=== PATIENT | male | born 1930 | race Asian ===

== ENCOUNTER 2016-06-28 20:51 | Inpatient (IN) | payer MEDICARE, OTHER ==
[~2016-06-28] VITALS: Ht 172.7 cm; Wt 72.0 kg
[~2016-06-28 20:51] MED LIST: ALLO100T PO; ASA3 PO; ASPI-556 PO; CARV12 PO; CHLO120L TP; DSS100 PO; FURO20 PO; HEP5KI SQ; HYDR-3965 PO; MUPI15C TP; PANT40TA25 PO; VANC750F2 IVPB
[2016-06-28] MEDS ORDERED: ACETAMINOPHEN 650 MG RECTAL SUPPOSITORY PR ONE (21:30)
[2016-06-28] MEDS ORDERED: AMLO-512 PO (21:39)
[2016-06-28] MEDS ORDERED: GABA-531 PO (21:39)
[2016-06-28 22:17] LABS: BASOPHILS % (AUTO) 0.1 % (0.0-2.0); EOSINOPHILS % (AUTO) 0.1 % (1.0-6.0); HEMATOCRIT 52.8 % (41-53); HEMOGLOBIN 15.3 g/dL (13.5-17.5); LYMPHOCYTES # (AUTO) 1.3 K/uL (1.0-4.8); MEAN CORPUSCULAR HEMOGLOBIN 25.8 pg (26.0-34.0); MEAN CORPUSCULAR VOLUME 89 fL (80-100); MONOCYTES # (AUTO) 0.6 K/uL (0.1-1.0); MONOCYTES % (AUTO) 3.3 % (2.0-9.0); NEUTROPHILS # (AUTO) 16.1 K/uL (1.8-7.7); PLATELET COUNT (AUTO) 319 K/uL (150-450); RED BLOOD CELL COUNT(AUTO) 5.96 MIL/uL (4.50-5.90); RED CELL DISTRIBUTION WIDTH 17.8 % (11.5-14.5)
[2016-06-28 22:25] LABS: NEUTROPHILS % (AUTO) 89.5 % (40.0-70.0)
[2016-06-28 22:27] LABS: INR 1.2 (0.9-1.1); PROTHROMBIN TIME 12.3 SEC (9.4-11.6)
[2016-06-28 22:27] LABS: APPEARANCE,URINE TURBID (CLEAR); GLUCOSE, URINE (UA) NEGATIVE (NEGATIVE); KETONES,URINE NEGATIVE (NEGATIVE); LEUKOCYTE ESTERASE ,URINE LARGE (NEGATIVE); OCCULT BLOOD,URINE LARGE (NEGATIVE); PH,URINE 5.5 (5.0-8.0); PROTEIN,URINE SEE CONFIRM (NEGATIVE)
[2016-06-28 22:28] LABS: ADD UA MICROSCOPIC YES
[2016-06-28 22:29] LABS: SULFOSALICYLIC ACID,URINE 2+ (Negative)
[2016-06-28 22:36] LABS: RBC MORPHOLOGY COMMENT ABNORMAL RBC MORPH
[2016-06-28 22:37] LABS: WBC,URINE Full Field /HPF (0-5)
[2016-06-28 22:38] LABS: SQUAMOUS EPITHELIAL CELL,UR Few /LPF (None Seen)
[2016-06-28 22:57] LABS: ALANINE AMINOTRANSFERASE 19 U/L (12-78); ALBUMIN 1.7 g/dL (3.4-5.0); ANION GAP 19 mmol/L (8-16); ASPARTATE AMINOTRANSFERASE 45 U/L (15-37); BILIRUBIN,TOTAL 0.6 mg/dL (0.1-1.0); CALCIUM, TOTAL 8.9 mg/dL (8.8-10.5); CARBON DIOXIDE 19 mmol/L (22-29); CHLORIDE 110 mmol/L (98-107); CREATINE KINASE MB 1.6 ng/mL (0-5); CREATINE KINASE, TOTAL 767 U/L (39-308); CREATININE 6.27 mg/dL (0.60-1.30); GLOMERULAR FILTR. RATE CALC 9 mL/min (>60); POTASSIUM 5.4 mmol/L (3.5-5.1); SODIUM SERUM 148 mmol/L (136-145); TOTAL PROTEIN, SERUM 8.1 g/dL (6.4-8.2)
[2016-06-28 22:59] LABS: B-TYPE NATRIURETIC PEPTIDE 133 pg/mL (0-100)
[2016-06-28] MEDS ORDERED: SODIUM CHLORIDE 0.9% 1,000 ML IV ONE (23:00)
[2016-06-28] MEDS ORDERED: CefTRIAXone 1 GM/DEXTROSE 50 ML IV ONE (23:00)
[2016-06-28 23:02] LABS: UREA NITROGEN, BLOOD 149 mg/dL (7-18)
[2016-06-28] MEDS ORDERED: ONDANSETRON HCL 4 MG/2 ML VIAL IVP PRN (23:30)
[2016-06-28] MEDS ORDERED: 0.9% SODIUM CHLORIDE 10 ML SYRINGE IVP PRN (23:30)
[2016-06-28] MEDS ORDERED: ACETAMINOPHEN 325 MG TABLET PO PRN (23:30)
[2016-06-28 23:35] LABS: LACTIC ACID 2.8 mmol/L (0.4-2.0)
[2016-06-29] VITALS (7 sets, daily range): BP systolic 100–144; BP diastolic 50–80
[2016-06-29 00:09] LABS: REFLEX LACTIC ACID? YES YES
[2016-06-29 00:15] LABS: INFLUENZA TYPE B NEGATIVE FOR TYPE B (NEGATIVE)
[2016-06-29] MEDS ORDERED: OxyCODONE HCL/ACETAMINOPHEN 5-325 MG TABLET PO PRN (02:30)
[2016-06-29] MEDS ORDERED: SODIUM CHLORIDE 0.9% 1,000 ML IV SCH (02:30)
[2016-06-29] MEDS: DOCUSATE SODIUM 100 MG CAPSULE PO SCH ×3 (02:30→21:06)
[2016-06-29] MEDS ORDERED: ONDANSETRON HCL 4 MG/2 ML VIAL IVP PRN (02:30)
[2016-06-29] MEDS ORDERED: 0.9% SODIUM CHLORIDE 10 ML SYRINGE IVP PRN (02:30)
[2016-06-29] MEDS ORDERED: MAGNESIUM HYDROXIDE SUSPENSION 30 ML UDCUP PO PRN (02:30)
[2016-06-29] MEDS ORDERED: DEXTROSE 50%-WATER 25 GM/50 ML SYRINGE IVP PRN (02:30)
[2016-06-29] MEDS: INSULIN ASPART 100 UNITS/ML SQ PRN ×4 (05:46→21:09)
[2016-06-29 06:32] LABS: GLUCOSE,POINT OF CARE 336 MG/DL (70-110)
[2016-06-29 07:51] LABS: ORIG DRAW (USER) MSIMS
[2016-06-29] MEDS: ASPIRIN 81 MG EC TABLET PO SCH (09:10)
[2016-06-29] MEDS: PANTOPRAZOLE SODIUM 40 MG/VIAL IVP SCH (09:10)
[2016-06-29] MEDS: SODIUM CHLORIDE 0.45% 1,000 ML IV SCH (12:09)
[2016-06-29] MEDS: ALBUMIN HUMAN 25%-25GM/100ML 100 ML IV SCH ×2 (13:32→18:26)
[2016-06-29] MEDS: CefTRIAXone 1 GM/DEXTROSE 50 ML IV SCH (22:00)
[2016-06-30] MEDS: ALBUMIN HUMAN 25%-25GM/100ML 100 ML IV SCH ×5 (00:05→23:43)
[2016-06-30] MEDS: SODIUM CHLORIDE 0.45% 1,000 ML IV SCH ×2 (00:38→16:07)
[2016-06-30 04:17] VITALS: BP 121/71
[2016-06-30] MEDS: INSULIN ASPART 100 UNITS/ML SQ PRN ×3 (05:58→20:27)
[2016-06-30 06:05] LABS: LACTIC ACID 1.3 mmol/L (0.4-2.0)
[2016-06-30 06:27] LABS: CALCIUM, TOTAL 8.5 mg/dL (8.8-10.5); CREATININE 6.12 mg/dL (0.60-1.30); MAGNESIUM 3.1 mg/dL (1.80-2.40); PHOSPHORUS 7.1 mg/dL (2.5-4.9); POTASSIUM 4.5 mmol/L (3.5-5.1)
[2016-06-30 06:40] LABS: EOSINOPHILS % (AUTO) 0.6 % (1.0-6.0); HEMATOCRIT 36.8 % (41-53); HEMOGLOBIN 11.5 g/dL (13.5-17.5); LYMPHOCYTES % (AUTO) 6.1 % (22.0-44.0); MEAN CORPUSCULAR HEMOGLOBIN 28.5 pg (26.0-34.0); MEAN CORPUSCULAR HGB CONC 31.2 G/dL (31.0-37.0); MEAN CORPUSCULAR VOLUME 91 fL (80-100); MONOCYTES # (AUTO) 0.5 K/uL (0.1-1.0); MONOCYTES % (AUTO) 3.1 % (2.0-9.0); NEUTROPHILS # (AUTO) 15.6 K/uL (1.8-7.7); PLATELET COUNT (AUTO) 181 K/uL (150-450); RED BLOOD CELL COUNT(AUTO) 4.03 MIL/uL (4.50-5.90); RED CELL DISTRIBUTION WIDTH 17.5 % (11.5-14.5); WHITE BLOOD COUNT (AUTO) 17.3 K/uL (4.5-11.0)
[2016-06-30 07:30] VITALS: BP 124/70
[2016-06-30 08:07] LABS: NEUTROPHILS % (AUTO) 90.2 % (40.0-70.0)
[2016-06-30] MEDS: PANTOPRAZOLE SODIUM 40 MG/VIAL IVP SCH (08:30)
[2016-06-30] MEDS: DOCUSATE SODIUM 100 MG CAPSULE PO SCH ×2 (08:42→20:30)
[2016-06-30] MEDS: ASPIRIN 81 MG EC TABLET PO SCH (08:42)
[2016-06-30 10:47] LABS: ABG A-A DIFF O2 57.3 mmHg (10-20.0); ABG BASE EXCESS -10.5 mmol/L (-2.0-3.0); ABG HCO3 17.3 mmol/L (22.0-26.0); ABG OXYHEMOGLOBIN 90.9 % (94.0-100.0); ABG PCO2 25 mmHg (35-45); ABG PH 7.389 (7.35-7.450); TEMPERATURE, FAHRENHEIT, BG 97.8 FAHREN (96.0-98.6)
[2016-06-30 10:48] LABS: ALLEN TEST, BLOOD GAS Positive
[2016-06-30 10:56] VITALS: BP 174/90
[2016-06-30 12:07] LABS: GLUCOSE,POINT OF CARE 176 MG/DL (70-110)
[2016-06-30] MEDS ORDERED: *CLINICAL-PERIPHERAL PARENTERAL NUTRITION DOSING CLINICAL ONE (14:30)
[2016-06-30 15:18] VITALS: BP 160/75
[2016-06-30] MEDS: [UNRECOGNIZED DRUG - OTHER] IV SCH (17:12)
[2016-06-30] MEDS: AMINO ACIDS IV SCH (17:12)
[2016-06-30] MEDS: PPN IV SCH (17:12)
[2016-06-30 20:18] VITALS: BP 144/79
[2016-06-30] MEDS: ACETAMINOPHEN 325 MG TABLET PO PRN (20:20)
[2016-06-30 20:31] LABS: GLUCOSE COMMENT 1 Received Meds; GLUCOSE,POINT OF CARE 181 MG/DL (70-110)
[2016-06-30] MEDS: CefTRIAXone 1 GM/DEXTROSE 50 ML IV SCH (22:41)
[2016-07-01] VITALS (7 sets, daily range): BP systolic 91–178; BP diastolic 48–88
[2016-07-01] MEDS: INSULIN ASPART 100 UNITS/ML SQ PRN ×7 (00:52→23:39)
[2016-07-01 01:46] LABS: GLUCOSE COMMENT 1 Received Meds; GLUCOSE,POINT OF CARE 219 MG/DL (70-110)
[2016-07-01] MEDS: ALBUMIN HUMAN 25%-25GM/100ML 100 ML IV SCH ×4 (05:02→23:37)
[2016-07-01] MEDS: SODIUM CHLORIDE 0.45% 1,000 ML IV SCH ×2 (05:06→18:29)
[2016-07-01 06:26] LABS: GLUCOSE COMMENT 1 Received Meds; GLUCOSE,POINT OF CARE 212 MG/DL (70-110)
[2016-07-01] MEDS: ASPIRIN 81 MG EC TABLET PO SCH (09:29)
[2016-07-01] MEDS: PANTOPRAZOLE SODIUM 40 MG/VIAL IVP SCH (09:29)
[2016-07-01] MEDS: DOCUSATE SODIUM 100 MG CAPSULE PO SCH ×2 (09:29→20:36)
[2016-07-01 09:33] LABS: CALCIUM, TOTAL 8.5 mg/dL (8.8-10.5); CREATININE 5.74 mg/dL (0.60-1.30); MAGNESIUM 2.9 mg/dL (1.80-2.40); PHOSPHORUS 4.7 mg/dL (2.5-4.9); POTASSIUM 4.3 mmol/L (3.5-5.1)
[2016-07-01] MEDS: ACETAMINOPHEN 325 MG TABLET PO PRN (13:07)
[2016-07-01] MEDS: [UNRECOGNIZED DRUG - OTHER] IV SCH (16:18)
[2016-07-01] MEDS: PPN IV SCH (16:18)
[2016-07-01] MEDS: AMINO ACIDS IV SCH (16:18)
[2016-07-01 19:16] LABS: GLUCOSE,POINT OF CARE 193 MG/DL (70-110)
[2016-07-01 19:16] LABS: GLUCOSE,POINT OF CARE 181 MG/DL (70-110)
[2016-07-01] MEDS: CefTRIAXone 1 GM/DEXTROSE 50 ML IV SCH (22:38)
[2016-07-02] VITALS (7 sets, daily range): BP systolic 100–132; BP diastolic 52–68
[2016-07-02] MEDS: OxyCODONE HCL/ACETAMINOPHEN 5-325 MG TABLET PO PRN (01:05)
[2016-07-02 01:46] LABS: GLUCOSE COMMENT 1 Received Meds; GLUCOSE,POINT OF CARE 218 MG/DL (70-110)
[2016-07-02 01:46] LABS: GLUCOSE COMMENT 1 Received Meds; GLUCOSE,POINT OF CARE 204 MG/DL (70-110)
[2016-07-02] MEDS: INSULIN ASPART 100 UNITS/ML SQ PRN ×4 (03:59→21:15)
[2016-07-02] MEDS: ALBUMIN HUMAN 25%-25GM/100ML 100 ML IV SCH ×4 (05:39→23:59)
[2016-07-02] MEDS: ASPIRIN 81 MG EC TABLET PO SCH (09:07)
[2016-07-02] MEDS: DOCUSATE SODIUM 100 MG CAPSULE PO SCH ×2 (09:07→21:09)
[2016-07-02] MEDS: PANTOPRAZOLE SODIUM 40 MG/VIAL IVP SCH (09:08)
[2016-07-02 11:11] LABS: CALCIUM, TOTAL 8.5 mg/dL (8.8-10.5); CREATININE 6.51 mg/dL (0.60-1.30); MAGNESIUM 2.8 mg/dL (1.80-2.40); PHOSPHORUS 5.5 mg/dL (2.5-4.9); POTASSIUM 4.2 mmol/L (3.5-5.1)
[2016-07-02] MEDS ORDERED: FURO40 PO (11:40)
[2016-07-02] MEDS ORDERED: HALOPERIDOL 1 MG TABLET GT PRN (11:45)
[2016-07-02 18:36] LABS: GLUCOSE COMMENT 1 Received Meds; GLUCOSE,POINT OF CARE 208 MG/DL (70-110)
[2016-07-02 21:05] LABS: GLUCOSE COMMENT 1 Received Meds; GLUCOSE,POINT OF CARE 152 MG/DL (70-110)
[2016-07-02 21:06] LABS: GLUCOSE COMMENT 1 Received Meds; GLUCOSE,POINT OF CARE 171 MG/DL (70-110)
[2016-07-02 23:20] LABS: GLUCOSE,POINT OF CARE 202 MG/DL (70-110)
[2016-07-02] MEDS: CefTRIAXone 1 GM/DEXTROSE 50 ML IV SCH (23:59)
[2016-07-03] MEDS: OxyCODONE HCL/ACETAMINOPHEN 5-325 MG TABLET PO PRN (01:51)
[2016-07-03 04:34] VITALS: BP 97/45
[2016-07-03] MEDS: ALBUMIN HUMAN 25%-25GM/100ML 100 ML IV SCH ×4 (06:01→22:52)
[2016-07-03] MEDS: INSULIN ASPART 100 UNITS/ML SQ PRN ×4 (06:11→20:39)
[2016-07-03 07:29] LABS: CALCIUM, TOTAL 8.5 mg/dL (8.8-10.5); CREATININE 7.35 mg/dL (0.60-1.30); MAGNESIUM 2.9 mg/dL (1.80-2.40); POTASSIUM 4.7 mmol/L (3.5-5.1)
[2016-07-03 07:30] LABS: GLUCOSE,POINT OF CARE 327 MG/DL (70-110)
[2016-07-03 08:04] VITALS: BP 123/61
[2016-07-03 08:37] LABS: GLUCOSE COMMENT 1 Received Meds; GLUCOSE,POINT OF CARE 323 MG/DL (70-110)
[2016-07-03 08:37] LABS: GLUCOSE COMMENT 1 Received Meds; GLUCOSE,POINT OF CARE 190 MG/DL (70-110)
[2016-07-03 08:37] LABS: GLUCOSE COMMENT 1 Received Meds; GLUCOSE,POINT OF CARE 176 MG/DL (70-110)
[2016-07-03 08:37] LABS: GLUCOSE,POINT OF CARE 175 MG/DL (70-110)
[2016-07-03 08:37] LABS: GLUCOSE COMMENT 1 Received Meds; GLUCOSE,POINT OF CARE 239 MG/DL (70-110)
[2016-07-03 08:37] LABS: GLUCOSE COMMENT 1 Received Meds; GLUCOSE,POINT OF CARE 283 MG/DL (70-110)
[2016-07-03] MEDS: DOCUSATE SODIUM 100 MG CAPSULE PO SCH ×2 (08:56→20:37)
[2016-07-03] MEDS: ASPIRIN 81 MG EC TABLET PO SCH (08:56)
[2016-07-03] MEDS: PANTOPRAZOLE SODIUM 40 MG/VIAL IVP SCH (08:57)
[2016-07-03] MEDS ORDERED: DEXTROSE 5%-WATER 1,000 ML IV SCH (09:30)
[2016-07-03 11:22] VITALS: BP 105/53
[2016-07-03 15:20] VITALS: BP 115/62
[2016-07-03 19:56] VITALS: BP 109/52
[2016-07-03 22:01] LABS: GLUCOSE COMMENT 1 Received Meds; GLUCOSE,POINT OF CARE 361 MG/DL (70-110)
[2016-07-03 22:01] LABS: GLUCOSE COMMENT 1 Received Meds; GLUCOSE,POINT OF CARE 310 MG/DL (70-110)
[2016-07-03 22:46] LABS: GLUCOSE,POINT OF CARE 335 MG/DL (70-110)
[2016-07-03] MEDS: CefTRIAXone 1 GM/DEXTROSE 50 ML IV SCH (22:52)
[2016-07-03 23:58] VITALS: BP 107/51
[2016-07-04] MEDS ORDERED: FUROSEMIDE 20 MG/2 ML VIAL IVP ONE (01:45)
== END 2016-07-04 04:15 | disposition expired | DRG 871 ==
LOC: EMS 20:54 → 5S 23:45 → 6N 07-02 14:03
PROVIDERS: ADMIT Internal Medicine; ATTEND Internal Medicine
PROC: 05H933Z Insertion of Infusion Device into Right Brachial Vein, Percutaneous Approach (ICD-10-PCS; principal; 2016-06-30)
DX: A41.51 Sepsis due to Escherichia coli [E. coli] (principal); N17.0 Acute kidney failure with tubular necrosis; E43 Unspecified severe protein-calorie malnutrition; E87.0 Hyperosmolality and hypernatremia; N39.0 Urinary tract infection, site not specified; I13.0 Hypertensive heart and chronic kidney disease with heart failure and stage 1 through stage 4 chronic kidney disease, or unspecified chronic kidney disease; N13.30 Unspecified hydronephrosis; R47.01 Aphasia; Z51.5 Encounter for palliative care; Z66 Do not resuscitate; E86.0 Dehydration; M10.9 Gout, unspecified; B96.89 Other specified bacterial agents as the cause of diseases classified elsewhere; E11.22 Type 2 diabetes mellitus with diabetic chronic kidney disease; E11.40 Type 2 diabetes mellitus with diabetic neuropathy, unspecified; I25.10 Atherosclerotic heart disease of native coronary artery without angina pectoris; I49.5 Sick sinus syndrome; I50.9 Heart failure, unspecified; I71.9 Aortic aneurysm of unspecified site, without rupture; N18.3 Chronic kidney disease, stage 3 (moderate); Z95.0 Presence of cardiac pacemaker; Z95.1 Presence of aortocoronary bypass graft; Z79.82 Long term (current) use of aspirin; Z79.899 Other long term (current) drug therapy
CPT/HCPCS: 51702; 70450; 76770; 82570; 82805; 82962; 83605; 83735; 84100; 84300; 84540; 87040; 87086; 87804; 92526; 92610; 93005; 96361; 96374; 99285; C9113; J0696; J1940; J7030; J7060; J7070; P9046